=== PATIENT | female | born 1975 | race Caucasian/White ===

== ENCOUNTER 2023-05-26 13:07 | Outpatient (REF) | payer BC, SELFPAY ==
[2023-05-26 14:31] LABS: Abs Immature Grans 0.03 10^3/uL (0.0-0.06); Absolute Basophil Count 0.03 10^3/uL (0.0-0.2); Absolute Eosinophil Count 0.13 10^3/uL (0.0-0.7); Absolute Lymphocyte Count 2.36 10^3/uL (1.2-3.4); Absolute Monocyte Count 0.62 10^3/uL (0.1-0.8); Absolute Neutrophil Count 5.74 10^3/uL (1.2-6.7); Basophils % 0.3; Eosinophils % 1.5; HGB 15.1 g/dL (11.2-15.7); Immature Grans % 0.3; Lymphocytes % 26.5; MCH 29.5 pg (27.0-33.0); MCHC 32.8 % (32.0-36.0); MCV 90 fL (80-95); Neutrophils % 64.4; RBC 5.12 10^6/uL (3.93-5.22); RDW 13.2 % (11.7-14.6); RDW-SD 43.6 fL; WBC 8.91 10^3/uL (4.4-10.8)
[2023-05-26 14:53] LABS: Iron 90 ug/dL (50-170); Total Iron Binding Capacity 327 ug/dL (250-450); Transferrin Sat 28 % (15-50)
[2023-05-26 15:14] LABS: Diff Comment PLT Morph Reviewed; RBC Morphology Normal
[2023-05-26 15:15] LABS: Hemoglobin A1C 5.5 % (<5.7)
[2023-05-26 15:19] LABS: ALT 23 U/L (14-59); AST 12 U/L (15-37); Albumin 3.4 g/dL (3.4-5.0); Alkaline Phosphatase 109 U/L (46-116); Anion Gap 10.8 mmol/L (3-11); BUN 15 mg/dL (7-18); Bilirubin, Total 0.7 mg/dL (0.2-1.0); CO2 26.2 mmol/L (21.0-32.0); CREATININE 0.8 mg/dL (0.55-1.02); Calcium 9.1 mg/dL (8.5-10.1); Chloride 105 mmol/L (98-107); Ferritin 157 ng/mL (8-252); Glucose 90 mg/dL (74-106); Magnesium 1.9 mg/dL (1.8-2.4); Potassium 4.9 mmol/L (3.5-5.1); Sodium 142 mmol/L (136-145); TSH (W/Ref FT4) 1.06 uIU/mL (0.36-3.74); Total Protein 6.9 g/dL (6.4-8.2); Vitamin B12 352 pg/mL (193-986)
== END 2023-05-26 13:08 | disposition home or self-care (01) ==
LOC: NCHCN 13:07
PROVIDERS: PCP Neuromusculoskeletal Medicine & OMM; Referring Provider Family Medicine; Visit Provider Family Medicine
DX: E03.9 Hypothyroidism, unspecified (principal); I10 Essential (primary) hypertension; G62.9 Polyneuropathy, unspecified
CPT/HCPCS: 80053; 82607; 82728; 83036; 83540; 83550; 83735; 84443; 85025

== ENCOUNTER → 2023-06-17 01:27 | Outpatient (CLI) | payer BC, SELFPAY ==
--- NOTE | 2023-06-17 | DI.US_ITS ---
Exam(s) US ABDOMEN LIMITED EXAM: US ABDOMEN LIMITED CLINICAL HISTORY: RT UPPER QUAD PAIN, R10.11 TECHNIQUE: Ultrasound abdomen performed using standard protocol. COMPARISON: No exams were available for comparison FINDINGS: LIVER: Suboptimal evaluation due to patient body habitus. Normal size. Normalechogenicity. No foca l liver lesions are seen.. GALLBLADDER: No evidence of cholelithiasis. No evidence of wall thickening. No pericholecystic fluid identified. MIRANDA'S SIGN: Negative. BILIARY SYSTEM: No intrahepatic or extrahepatic biliary ductal dilation. RIGHT KIDNEY: Normal size. No gross evidence of large renal calculi. No evidence of hydronephrosis. N o suspicious renal mass. No cyst identified. PANCREAS: Not well seen ABDOMINAL AORTA AND IVC: Visualized portions normal caliber. ASCITES: None seen. Exam is limited by patient body habitus. IMPRESSION: Limited exam. No acute abnormality. DATA REPOSITORY:
--- NOTE | 2023-06-17 | DI.MAMMO_ITS ---
Exam(s) MAMMO SCREENING EXAM: MAMMO SCREENING CLINICAL HISTORY: SCREENING, Z12.31 TECHNIQUE: Mammograms were interpreted according to the usual protocol including computer analysis w [employer] CAD system, tomosynthesis and C-view imaging. COMPARISON: 2018 FINDINGS: The breasts are composed of mainly fatty density , Breast Density category A. No suspicious masses or suspicious microcalcifications are seen. No skin thickening or abnormal axillary lymph nodes are seen. There has been no significant change from prior exams. IMPRESSION: BI-RADS Category 1, Negative mammogram Yearly screening mammography is recommended. Breast Density - Category A, fatty density. A negative radiographic report should not delay biopsy if a dominant or clinically suspicious mass is present. Up to ten percent of cancers are not identified on mammography. A negative report may reinforce clinical impression. Adenosis and dense breasts may obscure an underlying neoplasm. False positive reports average 6 to 10%. Patient will receive a letter notifying them of these results.
== END ==
PROVIDERS: PCP Neuromusculoskeletal Medicine & OMM; Visit Provider Family Medicine
DX: Z12.31 Encounter for screening mammogram for malignant neoplasm of breast (principal); R10.11 Right upper quadrant pain
CPT/HCPCS: 77063; 77067; 76705

== ENCOUNTER → 2023-09-24 00:49 | Outpatient (CLI) | payer BC, SELFPAY ==
--- NOTE | 2023-09-24 | DI.CT_ITS ---
Exam(s) CT ABDOMEN PELVIS CTA EXAM: CT ABDOMEN PELVIS CTA CLINICAL HISTORY: RESISTANT HYPERTENSION DISORDER I1A.0. TECHNIQUE: Imaging Protocol: Axial CT angiography was performed with multi-slice acquisition and m ulti-planar and/or 3D reconstructions. CONTRAST MATERIAL: Intravenous: Omnipaque 350 Contrast volume:100mL Oral: No COMPARISON: No exams were available for comparison FINDINGS: ABDOMEN AND PELVIS: Abdomen: Celiac axis/mesenteric arteries: No evidence of occlusion or significant stenosis. Renal Arteries: No evidence of occlusion or significant stenosis. No atherosclerotic calcification is present. Aorta: No evidence of occlusion or significant stenosis. No aneurysm or dissection. Pelvis: Iliac Arteries: No evidence of occlusion or significant stenosis. Minimal atherosclerotic calcificat ion is present. Common Femoral Arteries: No evidence of occlusion or significant stenosis. ABDOMEN: Lung bases: There is a small hiatal hernia. Liver: Normal density. No measurable mass. Portal, Superior Mesenteric, and Splenic Veins: There is suboptimal opacification of the veins second [place] to timing of the bolus. Gallbladder and Biliary Tract: No radiodense calculus or dilation. Pancreas: Normal density, no abnormal calcifications or inflammatory process. Spleen: Normal. Adrenals: No masses seen. Kidneys: Normal size, contour and axis. No radiodense stones or obstructive uropathy. No masses seen. Bowel: No obstruction or bowel wall thickening. Appendix is unremarkable. Peritoneal Cavity: No ascites, collection or mesenteric inflammatory response. No free air. Lymph Nodes: Within normal limits. Bones: Within normal limits for the patient's age. Portions of an intramedullary noelle is seen in the right femur. Soft Tissues: Unremarkable. PELVIS: Bladder: The urinary bladder is incompletely distended but no gross abnormalities identified. Reproductive Organs: Status post hysterectomy. Lymph Nodes: Within normal limits. Bones: Within normal limits. IMPRESSION: 1. No evidence of atherosclerotic calcification, significant stenosis or occlusion of the renal arter ies. 2. Minimal atherosclerotic calcification is seen in the iliac arteries. No significant stenosis or o cclusion is present. 3. No acute abdominal or pelvic process. RADIATION DOSE DELIVERED: 1,208.88mGy.cm Total DLP DATA REPOSITORY: All CT scans at this facility are submitted to the National Radiology Data Registry (NRDR) Dose Index Registry (DIR) with the [employer] (ACR). RADIATION OPTIMIZATION: All CT scans at this facility use at least one of these dose optimization te chniques: automated exposure control; mA and/or kV adjustment per patient size (includes targeted exa ms where dose is matched to clinical indication); or iterative reconstruction.
--- NOTE | 2023-09-24 08:30 | DI.US_ITS ---
APPROVED REPORT EXAM: Comprehensive 2D, Doppler, and color-flow Echocardiogram Patient Location: Out-Patient Car Worker Helper: Wale Mayo RDCS (AE) Indications: Family history of cardiomyopathy Other Information Technically limited study due to body habitus. Conclusion Technically difficult but adequate study Mild concentric left ventricular hypertrophy. Ejection fraction is 60%. Wall motion is normal Normal right ventricular size and function Both atria are normal in size There is no structural or hemodynamically significant valvular disease Wall motion Left Ventricle Left ventricular cavity is small. The left ventricular systolic function is normal. The left ventricu lar ejection fraction is within the normal range. Mild concentric left ventricular hypertrophy. There is normal LV segmental wall motion. There is no ventricular septal defect visualized. LVEF is 60%. Right Ventricle The right ventricle is normal size. The right ventricular systolic function is normal. Atria The left atrium size is normal. The right atrium size is normal. The interatrial septum is intact wit h no evidence for an atrial septal defect. Aortic Valve The aortic valve is normal in structure. There is no aortic valvular stenosis. No aortic regurgitatio n is present. Mitral Valve The mitral valve is normal in structure. No evidence of mitral valve stenosis. There is no mitral andie ve regurgitation noted. Tricuspid Valve The tricuspid valve is normal in structure. There is no tricuspid valve stenosis. Trace tricuspid reg urgitation. Unable to assess PA pressure. Pulmonic Valve The pulmonary valve is normal in structure. There is no pulmonic valvular stenosis. There is no pulmo libby valvular regurgitation. Great Vessels The aortic root is normal in size. The ascending aorta is borderline normal. Aortic arch is normal in caliber. IVC is normal in size and collapses >50% with inspiration. Pericardium There is no pericardial effusion. 2D Dimensions IVSD d PLAX 1.19 cm F: 0.6-1.0 Ao Root d 2.95 cm F: 2.7 - 3.3 LVPW d PLAX 1.19 cm F: 0.6 - 1.0 Ao Asc Diam d 3.22 cm F: 2.3 - 3.1 LVID d PLAX 2.61 cm F: 3.8 - 5.2 LVDs 1.81 cm F: 2.2 - 3.5 LV EF Teichholz 60.4 % FS 30.74 % LV EDV (Teich) 24.8 mL LV ESV (Teich) 9.8 mL Stroke Vol Index (Teich) 6.82 M-Mode TAPSE 1.88 cm (M/F) >1.7 Auto EF LV EDV A4C 95.9 mL LV EDV A2C 111.8 mL LV EDV BP 104.6 mL LV ESV A4C 37.9 mL LV ESV A2C 46.5 mL LV ESV BP 42.6 mL LVEF(%) A4C 60.5 % LVEF(%) A2C 58.4 % LVEF(%) BP 59.2 % LV SV A4C 58.0 ml LV SV A2C 65.3 ml LV SV BP 61.9 ml LV CO A4C 3.7 L/min LV CO A2C 4.4 L/min LV CO BP 4.1 L/min HR A4C 63.38 BPM HR A2C 68.06 BPM LV EDV Index (BP) LA Volume LA Length A4C 4.4 cm LA Length A2C 4.9 cm LA Area A4C s 9.45 cm2 LA Area A2C s 15.92 cm2 LA Vol A4C A-L 17.24 mL LA Vol A2C A-L 43.62 mL LA Vol Biplane A-L 29.0 mL LA Vol/BSA A4C A-L LA Vol/BSA A2C A-L LA Vol/BSA BP A-L 13.2 mL/m2 LA Vol A4C MOD 15.8 mL LA Vol A2C MOD 41.2 mL LA Vol BP MOD 26.8 mL RA Volume RA Area A4C 8.5 cm2 RA ESV A4C (A-L) 15.8mL RA Vol/BSA A4C A-L RA Length A4C 3.9 cm RA ESV A4C (MOD) 14.9mL LV Diastology MV E' medial 0.066 (>0.07 m/s) MV E Vmax 0.63 (0.4-1.3 m/s) MV E/E' MED 9.65 (<14) MV A Vmax 0.65 (0.4-1.3 m/s) MV E' lateral 0.083 (>0.1 m/s) E/A Ratio 1.0 MV E/E' LAT 7.62 (<14) MV E' Average 0.074 m/s MV E/E'(average) 8.51 Aortic Valve AoV Vmax 1.51 m/s LVOT Vmax 1.29 m/s AoV Peak Grad 9.1 mmHg LVOT Peak Grad 6.7 mmHg AoV Area (Vmax) 2.78 cm2 LVOT VTI 0.300 m AoV VTI 0.369 m LVOT Mean Grad 3.6 mmHg AoV Mean Shane. 1.10 m/s LVOT SV 97.43 mL AoV Mean Grad 5.5 mmHg LVOT Diam s 2.00 cm AoV Area (VTI) 2.64 cm2 Velocity Ratio 0.85 Mitral Valve MV DT 265 (160-240 msec) Pulmonary Valve PV Vmax 0.71 (0.5-1.5 m/s) RVOT Vmax 0.58 m/s PV Peak Grad 2.0 mmHg RVOT Peak Gr. 1.3 mmHg PV Mean Shane 0.48 m/s RVOT VTI 0.140 m PV Mean Grad 1.0 mmHg RVOT Mean Gr. 0.8 mmHg
[2023-09-24 10:12] LABS: BUN 12 mg/dL (7-18); CREATININE 0.9 mg/dL (0.55-1.02); Calcium 8.6 mg/dL (8.5-10.1); Chloride 102 mmol/L (98-107); Estimated GFR 79.35 (mL/min/1.73m2); Glucose 85 mg/dL (74-106); Potassium 3.7 mmol/L (3.5-5.1); Sodium 139 mmol/L (136-145)
[2023-09-24] MEDS: Omnipaque 350 MG/ML 500 ML BTL-Imaging package 100 ML IJ (10:41)
[2023-09-24] MEDS: Normal Saline - Diluent 50 ML VIAL IJ (10:41)
[2023-09-29 17:32] LABS: Renin Activity, Plasma 2.9 ng/mL/h
[2023-09-29 20:38] LABS: Aldosterone, P 14 ng/dL (<=21)
== END ==
PROVIDERS: PCP Family Medicine; Visit Provider Family Medicine
DX: I1A.0 Resistant hypertension (principal); Z82.49 Family history of ischemic heart disease and other diseases of the circulatory system
CPT/HCPCS: 80048; 82088; 74174; 84244; 93306

== ENCOUNTER 2024-05-29 15:59 | Outpatient (REF) | payer BC, SELFPAY ==
[2024-05-29 17:36] LABS: Anion Gap 6.8 mmol/L (3-11); BUN 20 mg/dL (7-18); CO2 31.2 mmol/L (21.0-32.0); CREATININE 0.7 mg/dL (0.55-1.02); Calculated LDL 119 mg/dL (<100); Chloride 104 mmol/L (98-107); Cholesterol 190 mg/dL (<200); Estimated GFR 106.62 (mL/min/1.73m2); Glucose 83 mg/dL (74-106); HDL Cholesterol 54 mg/dL (>or=50); Potassium 4.2 mmol/L (3.5-5.1); Sodium 142 mmol/L (136-145); TSH (W/Ref FT4) 11.93 uIU/mL (0.36-3.74); Triglyceride 86 mg/dL (<150)
[2024-05-30 09:59] LABS: Hepatitis C Ab w Rflx HCV PCR Negative (Negative)
[2024-05-30 10:54] LABS: HIV-1/2 Ag & Ab Screen Negative (Negative)
[2024-05-30 18:40] LABS: T4, Free 1.4 ng/dL (0.8-2.2)
== END 2024-05-29 16:00 | disposition home or self-care (01) ==
LOC: NCHCN 15:59
PROVIDERS: PCP Family Medicine; Visit Provider Family Medicine
DX: Z11.59 Encounter for screening for other viral diseases (principal); Z11.4 Encounter for screening for human immunodeficiency virus [HIV]; E03.9 Hypothyroidism, unspecified; E66.9 Obesity, unspecified; I1A.0 Resistant hypertension
CPT/HCPCS: 80048; 80061; 86803; 87389; 84439; 84443

== ENCOUNTER 2024-07-07 00:23 | Outpatient (CLI) | payer BC, SELFPAY ==
--- NOTE | 2024-07-07 | DI.RAD_ITS ---
Exam(s) XR FOOT LT COMPLETE EXAM: XR FOOT LT COMPLETE CLINICAL HISTORY: M79.675 Pain in left toe(s). TECHNIQUE: 2D digital imaging was performed of the left foot. Three images were obtained. AP, obli que and lateral views were obtained. COMPARISON: CR LEFT ANKLE 2 VIEW from 08/25/2016 FINDINGS: BONES: No acute fracture is present. No bony destructive lesion is seen. There is a bipartite medial sesamoid at the head of the 1st metatarsal. There is an enthesophyte at the posterior calcaneus. Th ere is a small plantar calcaneal spur. JOINTS: No dislocation present. There is a hallux valgus deformity. Degenerative changes are seen at the 1st MTP joint characterized by joint space narrowing and osteophytes. SOFT TISSUE: Normal. IMPRESSION: Mild degenerative changes seen of the foot and hallux valgus deformity. DATA REPOSITORY: RADIATION DOSE DELIVERED:
--- NOTE | 2024-07-07 | DI.MAMMO_ITS ---
Exam(s) MAMMO SCREENING EXAM: MAMMO SCREENING CLINICAL HISTORY: SCREENING, Z12.31 TECHNIQUE: Mammograms were interpreted according to the usual protocol including computer analysis w [employer] CAD system, tomosynthesis and C-view imaging. COMPARISON: 2017 through 2023 FINDINGS: The breasts are composed of mainly fatty density , Breast Density category A. No suspicious masses or suspicious microcalcifications are seen. No skin thickening or abnormal axillary lymph nodes are seen. There has been no significant change from prior exams. IMPRESSION: BI-RADS Category 1, Negative mammogram Yearly screening mammography is recommended. Breast Density - Category A, fatty density. A negative radiographic report should not delay biopsy if a dominant or clinically suspicious mass is present. Up to ten percent of cancers are not identified on mammography. A negative report may reinforce clinical impression. Adenosis and dense breasts may obscure an underlying neoplasm. False positive reports average 6 to 10%. Patient will receive a letter notifying them of these results.
== END 2024-07-07 00:43 ==
LOC: DI 00:23
PROVIDERS: PCP Family Medicine; Visit Provider Family Medicine
DX: Z12.31 Encounter for screening mammogram for malignant neoplasm of breast (principal); M79.675 Pain in left toe(s); M20.22 Hallux rigidus, left foot
CPT/HCPCS: 77063; 77067; 73630

== ENCOUNTER 2024-07-17 13:45 | Outpatient (REF) | payer BC, SELFPAY ==
[2024-07-17 15:25] LABS: TSH (W/Ref FT4) 2.31 uIU/mL (0.36-3.74)
== END 2024-07-17 13:46 | disposition home or self-care (01) ==
LOC: NCHCN 13:45
PROVIDERS: PCP Family Medicine; Visit Provider Family Medicine
DX: E03.9 Hypothyroidism, unspecified (principal)
CPT/HCPCS: 84443